=== PATIENT | female | born 2000 | race Caucasian/White ===

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

== ENCOUNTER 2021-04-05 04:25 | Inpatient (IN) | payer OTHER ==
[~2021-04-05] VITALS: Ht 160 cm; Wt 68.5 kg
[~2021-04-05 04:25] MED LIST: BENTYL 20MG TAB20 MG PO; ZOFRAN ODT 4 MG4 MG PO; ZOFRAN4 MG PO
[2021-04-05 07:12] LABS: HEMOGLOBIN 11.5 gm/dl (12.3-15.3); RED BLOOD COUNT 4.4 M/UL (4.00-5.10); WHITE BLOOD COUNT 14.8 K/UL (4.5-11.0)
[2021-04-05] MEDS ORDERED: IBUPROFEN600 MG PO (16:58)
[2021-04-05] MEDS ORDERED: DOCUSATE SODIU100 MG PO (16:58)
[2021-04-06 06:04] LABS: HEMOGLOBIN 9.1 gm/dl (12.3-15.3)
== END 2021-04-06 20:02 | disposition home or self-care (01) | DRG 807 ==
LOC: GENOP 04:25 → OB 05:21
PROVIDERS: Obstetrics & Gynecology; ADMIT Obstetrics & Gynecology
PROC: 10E0XZZ Delivery of Products of Conception, External Approach (ICD-10-PCS; principal; 2021-04-05)
PROC: 0HQ9XZZ Repair Perineum Skin, External Approach (ICD-10-PCS; 2021-04-05)
PROC: 4A0HXCZ Measurement of Products of Conception, Cardiac Rate, External Approach (ICD-10-PCS; 2021-04-05)
DX: O99.824 Streptococcus B carrier state complicating childbirth (principal); Z37.0 Single live birth; Z3A.40 40 weeks gestation of pregnancy; O70.0 First degree perineal laceration during delivery; Z20.822 Contact with and (suspected) exposure to COVID-19; Z90.89 Acquired absence of other organs; Z98.818 Other dental procedure status
CPT/HCPCS: 36415; 51702; 81001; 82800; 85014; 85018; 85025; 90715; J0595; J2590; J2795; J3010; J7120; U0002

== ENCOUNTER 2021-07-21 12:46 | Emergency (ER) | payer OTHER, MEDICAID ==
[~2021-07-21 12:46] MED LIST changes: +DOCUSATE SODIU100 MG PO; +IBUPROFEN600 MG PO
== END 2021-07-21 15:58 | disposition home or self-care (01) ==
LOC: ER1 12:46
DX: S96.911A Strain of unspecified muscle and tendon at ankle and foot level, right foot, initial encounter (principal); F17.210 Nicotine dependence, cigarettes, uncomplicated; V49.9XXA Car occupant (driver) (passenger) injured in unspecified traffic accident, initial encounter
CPT/HCPCS: 73630; 99283